=== PATIENT | female | born 1980 | race Caucasian/White ===

== ENCOUNTER → 2021-01-10 | Outpatient (CLI) | payer OTHER ==
[~2021-01-10] MED LIST: IBUPROFEN600 MG PO; NORFLEX 100 MG100 MG PO
[2021-01-10 09:13] LABS: HEMOGLOBIN 15.4 gm/dl (12.3-15.3); RED BLOOD COUNT 4.5 M/UL (4.00-5.10); WHITE BLOOD COUNT 6.5 K/UL (4.5-11.0)
[2021-01-10 09:35] LABS: BUN/CREATININE RATIO 14 (0-10)
[2021-01-11 08:15] LABS: THYROXINE (T4) 6.4 ug/dL (4.5-12.0); TRIIODOTHYRONINE (T3) 122 ng/dL (71-180)
[2021-01-11 11:12] LABS: RHEUMATOID ARTHRITIS FACTOR <10.0 IU/mL (0.0-13.9)
== END ==
LOC: LAB 07:50
PROVIDERS: Nurse Practitioner Family
DX: Z13.220 Encounter for screening for lipoid disorders (principal); M25.521 Pain in right elbow; R53.1 Weakness; M79.671 Pain in right foot; M79.672 Pain in left foot
CPT/HCPCS: 36415; 73080; 80053; 80061; 84436; 84443; 84480; 85025; 85652; 86038; 86140; 86431